=== PATIENT | female | born 1980 | race Two or more races ===

== ENCOUNTER 2020-01-23 10:47 | Emergency (ER) | payer OTHER ==
[~2020-01-23] VITALS: Ht 165.1 cm; Wt 58.1 kg
[2020-01-23] MEDS ORDERED: DexAMETHasone SOD PHOS 10MG/1ML VIAL INJ IM ONE (11:45)
[2020-01-23] MEDS ORDERED: cefTRIAXone SOD 1,000 MG VL IM ONE (11:45)
[2020-01-23 13:20] VITALS: BP 128/73
== END 2020-01-23 13:28 | disposition home or self-care (01) ==
LOC: ER 10:47
DX: J12.9 Viral pneumonia, unspecified (principal); Z20.828 Contact with and (suspected) exposure to other viral communicable diseases
CPT/HCPCS: 36415; 71045; 87426; 96372; 99284; J0696; J1100; U0003

== ENCOUNTER 2020-11-16 12:32 | Emergency (ER) | payer MEDICAID, OTHER ==
[~2020-11-16] VITALS: Ht 165.1 cm; Wt 66.7 kg
[2020-11-16] MEDS ORDERED: ASPirin 81 mg TAB PO ONE (12:45)
[2020-11-16 13:09] LABS: Basophils # (auto) 0 10 ^3/uL (0-0.2); Basophils % (auto) 0.6 % (0.0-2.0); Eosinophils # (auto) 0.1 10 ^3/uL (0-0.8); Eosinophils % (auto) 2.1 % (0.0-7.0); Hematocrit 46.8 % (36.0-46.0); Hemoglobin 15.7 g/dL (12.2-16.2); Lymphocytes # (auto) 2.2 10 ^3/uL (0.4-5.4); Lymphocytes % (auto) 35.2 % (10.0-50.0); Mean Corpuscular Hemoglobin 28.2 pg (28.0-32.0); Mean Corpuscular Hgb Conc. 33.4 g/dL (32.0-36.0); Mean Corpuscular Volume 84.4 fL (80.0-100.0); Monocytes # (auto) 0.4 10 ^3/uL (0-1.3); Monocytes % (auto) 6.2 % (0.0-12.0); Neutrophils # (auto) 3.5 10 ^3/uL (1.6-8.6); Neutrophils % (auto) 55.9 % (37.0-80.0); Nucleated Red Blood Cells % 0.1 %; Red Blood Cells 5.55 10^6/uL (4.0-5.20); Red Cell Distribution Width 13.4 % (11.8-14.3); White Blood Cell 6.3 10^3/uL (4.4-10.8)
[2020-11-16 13:12] VITALS: BP 168/109
[2020-11-16 13:26] LABS: INR 0.99 (0.9-1.15); Partial Thromboplastin Time 25.2 sec (23.6-33.0)
[2020-11-16 13:31] LABS: Albumin 3.4 g/dL (3.4-5.0); Anion Gap 8 (5-15); Blood Urea Nitrogen 13 mg/dL (7-18); Calcium 8.3 mg/dL (8.5-10.1); Carbon Dioxide 21 mmol/L (21-32); Chloride 108 mmol/L (98-107); Glucose 92 mg/dL (74-106); Sodium 137 mmol/L (136-145)
[2020-11-16 13:33] LABS: Alanine Aminotransferase 33 U/L (13-56); Aspartate Aminotransferase 21 U/L (15-37); BUN/Creatinine Ratio 18.3; GFR African American 118 mL/min; GFR Non-African American 98 mL/min
[2020-11-16 13:36] LABS: Alkaline Phosphatase 66 U/L (45-117); Bilirubin, Total 0.3 mg/dL (0.2-1.0); Total Protein 7.4 g/dL (6.4-8.2)
== END 2020-11-16 14:36 | disposition home or self-care (01) ==
LOC: ER 12:32
DX: G51.0 Bell's palsy (principal); I10 Essential (primary) hypertension; Z90.49 Acquired absence of other specified parts of digestive tract
CPT/HCPCS: 36415; 70450; 80053; 85025; 85610; 85730; 93005

== ENCOUNTER 2021-09-13 01:28 | Emergency (ER) | payer BC, OTHER ==
[2021-09-13] MEDS ORDERED: cloNIDine HCL 0.1 MG TAB PO ONE (02:15)
[2021-09-13] MEDS ORDERED: cloNIDine HCL 0.1 MG TAB ONE (02:27)
[2021-09-13] MEDS ORDERED: CLON0.1T PO (09:28)
[2021-09-13 09:31] VITALS: BP 96/65
== END 2021-09-13 10:05 | disposition home or self-care (01) ==
LOC: ER 01:28
DX: I10 Essential (primary) hypertension (principal); E11.9 Type 2 diabetes mellitus without complications; Z86.2 Personal history of diseases of the blood and blood-forming organs and certain disorders involving the immune mechanism; Z90.49 Acquired absence of other specified parts of digestive tract; Z79.899 Other long term (current) drug therapy
CPT/HCPCS: 70450

== ENCOUNTER → 2021-10-26 | Outpatient (CLI) | payer BC, OTHER ==
[~2021-10-26] MED LIST: CLON0.1T PO
[2021-10-26 08:38] LABS: Urine Blood Negative /uL (Negative); Urine Specific Gravity 1.033 (1.001-1.035)
[2021-10-26 08:50] LABS: Albumin 3.8 g/dL (3.4-5.0); Calcium 8.8 mg/dL (8.5-10.1); Potassium 3.9 mmol/L (3.5-5.1)
[2021-10-26 08:51] LABS: Urine WBC 1 /hpf (0 - 5)
[2021-10-26 08:53] LABS: Urine Bacteria MODERATE /hpf (None Seen); Urine Mucus MOD (None Seen)
[2021-10-26 08:55] LABS: BUN/Creatinine Ratio 29.9; Bilirubin, Total 0.3 mg/dL (0.2-1.0); Total Protein 7.4 g/dL (6.4-8.2)
[2021-10-26 09:28] LABS: Free T4 (Free Thyroxine) 1.05 ng/dL (0.89-1.76)
[2021-10-26 10:52] LABS: Basophils # (auto) 0 10 ^3/uL (0-0.2); Basophils % (auto) 0.4 % (0.0-2.0); Eosinophils # (auto) 0.1 10 ^3/uL (0-0.8); Eosinophils % (auto) 1.4 % (0.0-7.0); Hematocrit 39.8 % (36.0-46.0); Hemoglobin 12.8 g/dL (12.2-16.2); Lymphocytes # (auto) 3.1 10 ^3/uL (0.4-5.4); Lymphocytes % (auto) 31.1 % (10.0-50.0); Mean Corpuscular Hemoglobin 25.5 pg (28.0-32.0); Mean Corpuscular Hgb Conc. 32.1 g/dL (32.0-36.0); Mean Corpuscular Volume 79.3 fL (80.0-100.0); Monocytes # (auto) 0.6 10 ^3/uL (0-1.3); Monocytes % (auto) 6.2 % (0.0-12.0); Neutrophils # (auto) 6.1 10 ^3/uL (1.6-8.6); Neutrophils % (auto) 60.9 % (37.0-80.0); Red Blood Cells 5.02 10^6/uL (4.0-5.20); Red Cell Distribution Width 16.1 % (11.8-14.3)
== END | disposition home or self-care (01) ==
LOC: LAB 08:04
PROVIDERS: ATTEND Student in an Organized Health Care Education/Training Program
DX: I10 Essential (primary) hypertension (principal); R73.03 Prediabetes; E55.9 Vitamin D deficiency, unspecified; G62.9 Polyneuropathy, unspecified
CPT/HCPCS: 36415; 80053; 80061; 81001; 82306; 82607; 83036; 84439; 84443; 85025